=== PATIENT | female | born 1980 | race Caucasian/White ===

== ENCOUNTER → 2017-06-02 | Outpatient (CLI) | payer OTHER ==
[~2017-06-02] MED LIST: ALBU8.5H2 IH; BUDE10.2 IH; DIPH25TA82; DOCU100C37 PO; FISH1200; HYDR-3816 PO; HYDR-757 PO; IBP600T1 PO; IBUP-1773 PO; MAGN250T12; PARO20TA5 PO; SIME80TA16 PO; pro air
--- NOTE | 2017-06-02 10:07 | Diagnostic Imaging Report ---
PROCEDURE: US abdomen complete. TECHNIQUE: Multiple real-time grayscale images were obtained over the abdomen in various projections. INDICATION: Dyspepsia. FINDINGS: The visualized portions of the pancreas appear unremarkable. The liver is fairly homogeneous with no focal lesion seen. The gallbladder demonstrates no stones or wall thickening. No pericholecystic fluid. The CBD is 4 mm in caliber. The right kidney is 9.9 cm, and the left kidney is 9.9 cm in length. No hydronephrosis or focal lesion. No ascites or fluid collection is seen. The spleen is at the upper limits of normal in size measuring 12.9 x 5.9 x 5.2 cm. The abdominal aorta is largely obscured by bowel gas. The IVC visualized portion appears unremarkable. Sonographic Walton sign is reportedly negative. IMPRESSION: Borderline size of the spleen. No definite abnormality. Dictated by: Dictated on workstation # [id number]
== END ==
LOC: RAD 07:56
PROVIDERS: ATTEND Nurse Practitioner Family
DX: R10.13 Epigastric pain (principal)
CPT/HCPCS: 76700

== ENCOUNTER → 2021-07-01 | Outpatient (CLI) | payer SELFPAY ==
[~2021-07-01] VITALS: Ht 165 cm; Wt 93.2 kg
[~2021-07-01] MED LIST changes: +HYDR-34 PO; -HYDR-3816 PO
== END | disposition home or self-care (01) ==
LOC: PREOP 06-04 05:36
PROVIDERS: ATTEND Surgery
DX: Z01.818 Encounter for other preprocedural examination (principal)